=== PATIENT | female | born 1950 | race African-American/Black ===

== ENCOUNTER → 2019-08-31 | Outpatient (CLI) | payer MEDICAID ==
[~2019-08-31] MED LIST: ASPI-1497 PO; ATOR20TA65 PO; BENA40TA9 PO; CARV6.2548 PO; CELE-84 MT; CLOP75TA4 PO; ERGO2000 MT; ISOS10TA53 MT; MULT-1146 MT; TRAZ-252 PO
== END | disposition home or self-care (01) ==
LOC: L&DPROCDR 11:28
PROVIDERS: ATTEND Specialist
DX: R05 Cough (principal); Z20.828 Contact with and (suspected) exposure to other viral communicable diseases
CPT/HCPCS: U0003-CS